=== PATIENT | female | born 1955 | race Caucasian/White ===

== ENCOUNTER 2018-07-21 19:41 | Emergency (ER) | payer SELFPAY ==
[~2018-07-21] VITALS: Ht 152.4 cm; Wt 49.9 kg
[2018-07-21 19:45] VITALS: BP 140/106
--- NOTE | 2018-07-21 19:45 | NUR ---
PT TO CHAIR Wendy ROWE MD MADE AWARE OFS STATUS
--- NOTE | 2018-07-21 20:32 | NUR ---
62 Y/O F BIBA FOR ETOH. PT WITH UNSTEADY GAIT, FELL AND HIT HER HEAD, HEMATOMA TO POSTERIOR HEAD. ALSO NOTED WITH BLEEDING TO TEETH. GCS 15, AOX4. PT DENIES N/V/D; PERRL; LUNGS CLEAR BL, BREATHING UNLABORED; HR EVEN AND REGULAR, BL PERIPHERAL PULSES PRESENT; BS ACTIVE X4, NO TENDERNESS TO PALPATION, NO HEPATOSPLENOMEGALLY PALPATED, RESONANT TO PERCUSSION; PT DENIES ANY FEVER, CP, SOB, OR COUGH AT THIS TIME; PT STATES 8/10 PAIN AT THIS TIME; VSS; PATIENT POSITIONED FOR COMFORT; HOB ELEVATED; BEDRAILS UP X2; BED DOWN. DENIES PMH
--- NOTE | 2018-07-21 20:50 | NUR ---
MOVED TO ER BED 4
--- NOTE | 2018-07-21 21:20 | NUR ---
PT WOUND IRRIGATED WITH NORMAL SALINE
--- NOTE | 2018-07-21 22:00 | NUR ---
PT IN BED RESTING WITH EYES CLOSED. VSS. CONTINUE TO MONITOR.
--- NOTE | 2018-07-21 23:00 | NUR ---
PT IN BED RESTING WITH EYES CLOSED. VSS. CONTINUE TO MONITOR.
--- NOTE | 2018-07-22 07:08 | NUR ---
RECEIVED REPORT FROM VALERIANO COTA.
[2018-07-22 08:15] VITALS: BP 152/92
--- NOTE | 2018-07-22 08:16 | NUR ---
Patient discharged with v/s stable. Written and verbal after care instructions given and explained. Patient verbalized understanding. Ambulatory with steady gait. All questions addressed prior to discharge. Advised to follow up with PMD.BUS PASS PROVIDED AT THIS TIME.
== END 2018-07-22 08:16 | disposition home or self-care (01) ==
LOC: MED 19:41
DX: S00.93XA Contusion of unspecified part of head, initial encounter (principal); F10.129 Alcohol abuse with intoxication, unspecified; W22.8XXA Striking against or struck by other objects, initial encounter; Y93.89 Activity, other specified; Y92.89 Other specified places as the place of occurrence of the external cause; Y99.8 Other external cause status
CPT/HCPCS: 36415; 70450; 70486; 72125; 99284; G0482